=== PATIENT | male | born 1995 | race African-American/Black ===

== ENCOUNTER 2021-11-06 11:04 | Emergency (ER) | payer SELFPAY ==
[~2021-11-06] VITALS: Ht 172.7 cm; Wt 70.4 kg
[2021-11-06 11:13] VITALS: BP 125/73
[2021-11-06] MEDS ORDERED: PENI500T PO (11:55)
[2021-11-06] MEDS ORDERED: IBUP600T16 PO (11:55)
--- NOTE | 2021-11-06 11:55 | PHYS DOC ---
Past History Past Surgical History: No Surgical History (ELLEN TRUJILLO APRN) Alcohol Use: None (ELLEN TRUJILLO APRN) Adult General Chief Complaint Chief Complaint: DENTAL PROBLEM HPI HPI Patient is a 26-year-old male who presents emergency department concerning right front tooth pain. Patient states this tooth has been broken for the past 11 years, states 2 years ago he developed an infection with similar onset of symptoms and is worried that he may need to start on antibiotics again. Patient is also asking for a work excuse as he missed work today to come to the emergency department. Patient denies numbness or tingling to his face mouth or tongue. Denies fever or chills at home. Patient reports his tooth started aching this past Friday. Patient denies swelling to his face. Reports pain a 6 out of 10, has not taken pain medicines today. Denies taking prescription medications at home. Patient denies other physical complaints or physical concerns. (ELLEN TRUJILLO APRN) Review of Systems Review of Systems 14 body systems of review of systems have been reviewed. See HPI for pertinent positives and negative responses, otherwise all other systems are negative, nonpertinent or noncontributory. Constitutional: Negative except as outlined in HPI above. Skin: Negative except as outlined in HPI above. Eyes: Negative except as outlined in HPI above. HENT: Negative except as outlined in HPI above. Respiratory: Negative except as outlined in HPI above. Cardiovascular: Negative except as outlined in HPI above. GI: Negative except as outlined in HPI above. : Negative except as outlined in HPI above. Musculoskeletal: Negative except as outlined in HPI above. Integument: Negative except as outlined in HPI above. Neurologic: Negative except as outlined in HPI above. Endocrine: Negative except as outlined in HPI above. Lymphatic: Negative except as outlined in HPI above. Psychiatric: Negative except as outlined in HPI above. (ELLEN TRUJILLO APRN) Allergies Allergies Allergies Coded Allergies Type Severity Reaction Last Updated Verified No Known Drug Allergies 11/06/21 No (ELLEN TRUJILLO APRN) Physical Exam Physical Exam Constitutional: Well developed, well nourished, no acute distress, non-toxic appearance. 26-year-old male in no apparent distress. HENT: Normocephalic, atraumatic. Oropharynx moist, pink, no deep tissue infectious process appreciated, no lymphadenopathy of the head or neck appreciated, tooth #8 is broken, mild gum swelling without purulent drainage, no other abnormalities appreciated. Patient is speaking in normal voice tones, no drooling, no trismus. Eyes: Conjunctiva normal, no discharge. Neck: Normal range of motion, no stridor. Cardiovascular: No cyanosis appreciated, distal cap refill less than 2 seconds. Lungs & Thorax: Patient is in no respiratory distress, no audible adventitious lung sounds appreciated. Abdomen: Nontender, no abnormalities noted. Skin: Warm, dry, no erythema, no rash. Back: No tenderness, no deformities. Extremities: No tenderness, no cyanosis, no clubbing, ROM intact, no edema. Neurologic: Alert and oriented X 3, normal motor function, normal sensory function, no focal deficits noted. Psychologic: Affect normal, judgement normal, mood normal. (ELLEN TRUJILLO APRN) Current Patient Data Vital Signs Vital Signs Date Time Temp Pulse Resp B/P (MAP) Pulse Ox O2 Delivery O2 Flow Rate FiO2 11/06/21 11:13 98.3 72 16 125/73 (90) 98 Room Air (ELLEN TRUJILLO APRN) EKG EKG [] (ELLEN TRUJILLO APRN) Radiology/Procedures Radiology/Procedures [] (ELLEN TRUJILLO APRN) Heart Score C/O Chest Pain: No Risk Factors: Risk Factors: DM, Current or recent (<one month) smoker, HTN, HLP, family history of CAD, obesity. Risk Scores: Risk Factors: DM, Current or recent (<one month) smoker, HTN, HLP, family history of CAD, obesity. (ELLEN TRUJILLO APRN) Course & Med Decision Making Course & Med Decision Making Pertinent Labs and Imaging studies reviewed. (See chart for details) 26-year-old male, vital signs reviewed, presents to the emergency department concerning dental pain an 11-year history of fractured front tooth. Physical examination concerning for dental infection, discussed with patient strict follow-up with dentist to have tooth repaired, will start on penicillin VK regimen, will prescribe ibuprofen for pain and discomfort. Discussed with patient warm salt water swish and spits. Return to ER precautions or concerns. Patient gave verbal understanding of and is amenable to ED discharge planning. Discussed with the patient all findings and diagnostic testing as well as the need to follow-up with their primary care provider for further evaluation and treatment or return to the ED if any new or worsening symptoms. Strict return precautions were also discussed at length, the patient voiced understanding and agreement with the discharge planning. The patient was nontoxic in appearance, in no apparent distress, and hemodynamically stable at the time of disposition. (ELLEN TRUJILLO APRN) Course & Med Decision Making I was the Attending physician on the above date of service of this patient. This patient was evaluated, examined, treated, and dispositioned from the emergency department by the mid-level practitioner. Although I was working at the time , no assistance was requested. Electronically signed, Shiloh Cespedes DO (SHILOH CESPEDES DO) Alejandra Disclaimer [employer] Disclaimer This electronic medical record was generated, in whole or in part, using a voice recognition dictation system. (ELLEN TRUJILLO APRN) Departure Departure: Impression: Primary Impression: Dental infection Additional Impression: Dentalgia Disposition: HOME / SELF CARE / HOMELESS Condition: GOOD Referrals: PCP,NO (PCP) Patient Instructions: Dental Abscess, Dental Caries Additional Instructions: You were seen today in the emergency department for dental pain, there is some swelling to your gum area near the tooth of concern, you had indicated your tooth has been broken for the past 11 years, is very important that you follow- up with a dentist to get this repaired, as we discussed I am starting you on an antibiotic, please take as directed until complete, I am also prescribing you 600 mg ibuprofens to use as needed for dental discomfort, please use warm salt water swish and spit as we discussed. Thank you for visiting our Emergency Department. It was a pleasure taking care of you today in the emergency department and we appreciate you trusting us with your care. If any additional problems come up don't hesitate to return to visit us. Please follow up with your primary care provider so they can plan additional care if needed and know about the problem that you had. If symptoms worsen come back to the Emergency Department. Any concerning symptoms that start such as chest pain, shortness of air, weakness or numbness on one side of the body, running high fevers or any other concerning symptoms return to the ER. Scripts Ibuprofen (IBUPROFEN) 600 Mg Tablet 600 MG PO PRN Q6-8HRS PRN for PAIN, #30 TAB 0 Refills Prov: ELLEN TRUJILLO APRN 11/06/21 Penicillin V Potassium (PENICILLIN V POTASSIUM) 500 Mg Tablet 1 TAB PO QID for dental infection, #40 TAB 0 Refills Take 1 tablet by mouth 4 times a day for the next 10 days. Prov: ELLEN TRUJILLO APRN 11/06/21 Problem Qualifiers ELLEN TRUJILLO APRN Nov 06, 2021 11:55 SHILOH CESPEDES DO Nov 07, 2021 07:59
== END 2021-11-06 12:05 | disposition home or self-care (01) ==
LOC: ER 11:04
DX: K04.7 Periapical abscess without sinus (principal)
CPT/HCPCS: 99283